=== PATIENT | male | born 1980 | race Caucasian/White ===

== ENCOUNTER 2021-01-27 10:21 | Emergency (ER) | payer OTHER, SELFPAY ==
--- NOTE | ~2021-01-27 | CT_ITS ---
EXAMINATION: CT abdomen pelvis w con EXAM DATE: 01/27/2021 11:13 INDICATION: Pancreatitis. TECHNIQUE: Spiral CT of the abdomen and pelvis was performed following intravenous injection of 100 m L Omnipaque 350. Axial, coronal and sagittal images of the abdomen and pelvis were reviewed. The do se-length product (DLP) for this examination was 1375.55 mGy-cm. The exposure was tailored according to patient size (auto mA exposure control), and iterative reconstruction (ASIR) was used as addition al dose reduction technique. There is no prior study for comparison. FINDINGS: The liver, spleen, adrenal glands and pancreas are unremarkable. Gallbladder is unremarkab le. No biliary obstruction. Portal and splenic veins are patent. Kidneys enhance symmetrically. T here is no hydronephrosis. The prostate is unremarkable. The bladder is unremarkable. Small mesen teric lymph nodes. Small umbilical fat-containing hernia. The appendix is normal. The stomach and small bowel are unremarkable. There is expected amount of c olonic stool. No free intraperitoneal gas. The heart is normal in size. There are no pericardial or pleural effusions. There is severe for age emphysema. There are no osteoblastic or osteolytic l esions identified. IMPRESSION: 1. No acute intra-abdominal findings. 2. Severe emphysema for age. 3. Small umbilical fat-containing hernia. Reviewed, dictated and finalized at location D.
[2021-01-27 10:29] VITALS: BP 151/94; PULSE 89; RESP 14; TEMP 36.3; O2SAT 99
[2021-01-27 10:39] VITALS: BP 164/104; PULSE 97; RESP 18; O2SAT 97
[2021-01-27 10:51] LABS: Basophils Absolute Auto 0.1 K/mm3 (0.0-0.1); Basophils Percent Auto 0.9 % (0.2-1.2); Eosinophils Absolute Auto 0.1 K/mm3 (0-0.3); Eosinophils Percent Auto 1.9 % (0-4.4); Hematocrit 45.2 % (42.0-52.0); Hemoglobin 15.3 g/dL (14.0-18.0); Immature Granulocyte Absolute 0.05 K/mm3 (0.00-0.031); Immature Granulocyte Percent A 0.7 % (0-0.5); Lymphocytes Absolute Auto 1.94 K/mm3 (0.9-3.2); Lymphocytes Percent Auto 28.7 % (18.3-44.2); Mean Corpuscular HGB Conc 33.8 g/dl (32-36); Mean Corpuscular Hemoglobin 29.1 pg (26-34); Mean Corpuscular Volume 85.9 fl (80-100); Mean Platelet Volume 9.4 fl (7.4-10.4); Monocytes Absolute Auto 0.5 K/mm3 (0.1-0.6); Monocytes Percent Auto 7.1 % (2.6-8.5); Neutrophils Absolute Auto 4.1 K/mm3 (1.3-6.7); Neutrophils Percent Auto 60.7 % (45.5-73.1); Platelet Count Result 316 k/mm3 (150-375); Red Blood Count 5.26 M/mm3 (4.6-6.20); Red Cell Distribution Width 12.4 % (11.5-14.5); White Blood Count 6.8 K/mm3 (4.5-10.0)
[2021-01-27 11:01] LABS: Anion Gap 6 mmol/L (8-16); Blood Urea Nitrogen 15 mg/dL (9-20); Calcium 9.1 mg/dL (8.4-10.2); Carbon Dioxide 28 mmol/L (22-30); Chloride 107 mmol/L (98-107); Estimated CRCL calculation 109 ml/min; Estimated Glomerular Filt Rate > 60; Glucose 95 mg/dL (75-110); Sodium 141 mmol/L (137-145)
[2021-01-27 11:04] VITALS: BP 127/95; PULSE 85; RESP 19; O2SAT 97
[2021-01-27] MEDS: SODIUM CHLORIDE 0.9% IV 1,000 ML 999 ML IV CONT (11:04)
[2021-01-27 11:07] LABS: Add Urine Microscopic? NO; Appearance Urine Clear (Clear); Bilirubin Urine Negative (Negative); Blood Urine Negative (Negative); Color Urine Yellow (Yellow); Glucose Urine UA Negative (Negative); Ketones Urine Negative (Negative); Leukocyte Esterase Ur Negative LEU/UL (Negative); Nitrate Urine Negative (Negative); Protein Urine Negative (Negative); Specific Grav Ur 1.016 (1.001-1.035); Urobilinogen Urine Negative mg/dL (<2.0)
[2021-01-27 11:37] LABS: Alanine Aminotransferase 39 U/L (4-50); Albumin Level 4.4 g/dL (3.5-5.1); Alkaline Phosphatase 57 U/L (38-126); Aspartate Amino Transferase 35 U/L (17-59); Bilirubin,Total 1.1 mg/dL (0.2-1.3); Lipase 31 U/L (23-300)
--- NOTE | 2021-01-27 12:16 | ED.ABDPAIN ---
HPI - Abdominal Pain General Chief Complaint: Abdominal Pain Stated Complaint: abd pain Time Seen by Provider: 01/27/21 10:37 Source: patient and RN notes reviewed Mode of arrival: ambulatory Limitations: no limitations History of Present Illness HPI narrative: Patient a 40-year-old male who presents to emergency department for evaluation of left mid back pain that radiates into the flank patient has had this pain for a week and a half has seen chiropractor for this and taken [id number] medications with minimal improvement patient notes he feels swollen in the left upper abdomen and is tender pushes in this area. Denies injury trauma or similar occurrence in the past or recent illness or URI symptoms Related Data Allergies Allergy/AdvReac Type Severity Reaction Status Date / Time No Known Allergies Allergy Unknown Verified 07/22/19 09:54 Review of Systems Review of Systems: All systems reviewed & are unremarkable except as noted in HPI and below PMFSH Past Medical History Medical History Acute sinusitis Asthma BMI 35.0-35.9,adult BMI 36.0-36.9,adult COPD (chronic obstructive pulmonary disease) Cough Depression Encounter for wellness examination in adult Generalized anxiety disorder with panic attacks Mild intermittent asthma in adult without complication Mixed hyperlipidemia Seasonal allergic rhinitis Systemic adverse effect of COVID-19 vaccine (12/14/20) high fever 103? with headache after 2nd COVID vaccination 12/14/2020 Family History Family History Father Diabetes mellitus Hypertension Patient's father is in good health Mother Diabetes mellitus, Onset Age: 65 Hypertension, Onset Age: 65 Family history of malignant neoplasm Grandparent Carcinoma of colon Family history of lung cancer, Onset Age: 61 Social History Social History Smoking status: Never smoker Alcohol intake: never Substance use: never Substance use type: does not use Exam Narrative: Exam Narrative: GENERAL: Well-appearing, well-nourished, and in no acute distress. HEAD: Normocephalic, atraumatic. EYES: PERRLA and EOMI. ENT: Nares clear, no rhinorrhea or epistaxis. Mucous membranes moist. CHEST: Clear to auscultation. No respiratory distress. No wheezes rales or rhonchi HEART: Regular rate and rhythm. No murmur heard. . ABDOMEN: Soft, tenderness in the left upper abdomen no deformities noted, nondistended, normal active bowel sounds. EXTREMITIES: Normal range of motion. No edema. SKIN: Warm, dry, no rash. NEURO: No focal deficits. Alert and oriented x3. PSYCH: Normal mood and affect. Course Course Emergency Course: Patient in the room no distress aware of case findings treatment plan and diagnosis agreeing to follow-up as instructed with primary care for further evaluation ABCs and vital signs intact and stable patient does not appear distressed or uncomfortable agrees with this plan Vital Signs Vital signs: Vital Signs Temperature 97.3 F L 01/27/21 10:29 Pulse Rate 89 01/27/21 10:29 Respiratory Rate 14 01/27/21 10:29 Blood Pressure 151/94 H 01/27/21 10:29 Pulse Oximetry 99 01/27/21 10:29 Temperature 97.3 F L 01/27/21 10:29 Pulse Rate 85 01/27/21 11:04 Respiratory Rate 19 01/27/21 11:04 Blood Pressure 127/95 H 01/27/21 11:04 Pulse Oximetry 97 01/27/21 11:04 MDM - Abdominal Pain MDM Narrative Medical decision making narrative: Patient with left upper abdominal pain no high risk changes in the evaluation or imaging will be discharged home with outpatient follow-up with primary care agrees with this plan is also been provided with reasons to return and feels comfortable with this treatment plan Differential Diagnosis Differential diagnosis: Likely abdominal pain, acute appendicitis, calculus of kid
== END 2021-01-27 12:43 | disposition home or self-care (01) ==
PROVIDERS: Emergency Medicine Emergency Medical Services; Emergency Provider Family Medicine; PCP Family Medicine
DX: R10.9 Unspecified abdominal pain (principal); J45.909 Unspecified asthma, uncomplicated; F32.9 Major depressive disorder, single episode, unspecified; F41.9 Anxiety disorder, unspecified
CPT/HCPCS: 36415; 74177; 80048; 80076; 81003; 83690; 85025; 96361; 96374; 99284; J0131; J7030; Q9967

== ENCOUNTER 2021-06-09 07:42 | Outpatient (CLI) | payer OTHER, SELFPAY ==
--- NOTE | 2021-06-18 18:24 | WPDHOMESLEEP ---
Sleep Study - Home Unattended Date of Study: 06/09/21 <Rosanna Marie DO - Last Filed: 06/18/21 18:36> Ordering Provider: Paulina Espinoza NP <Rosanna Marie DO - Last Filed: 06/18/21 18:36> Interpreting Provider: Rosanna Marie DO <Rosanna Marie DO - Last Filed: 06/18/21 18:36> Home Sleep Study Type: Apnea Link Air <Rosanna Marie DO - Last Filed: 06/18/21 18:36> Height: 1.75 m <Rosanna Marie DO - Last Filed: 06/18/21 18:36> Weight: 117.934 kg <Rosanna Marie DO - Last Filed: 06/18/21 18:36> Body Mass Index: 38.4 <Rosanna Marie DO - Last Filed: 06/18/21 18:36> Neck Circumference (inches): 18 <Rosanna Marie DO - Last Filed: 06/18/21 18:36> [place]: 1 <Rosanna Marie DO - Last Filed: 06/18/21 18:36> Reason for Sleep Study Loud snoring and witnessed apneas <Rosanna Marie DO - Last Filed: 06/18/21 18:36> Sleep History The patient is a 41-year-old male with asthma and COPD that had a home sleep test ordered by his primary care for witnessed apneas. The patient states that his has noticed that he stops breathing in his sleep and she has to physically wake him to get him to breathe. The patient states that this happens almost every night for the past 1-2 years. The patient states that he frequently awakens from sleep short of breath. He occasionally awakens at night with heartburn, belching or cough. Constantly snores loud enough that others complain. He constantly has trouble sleeping when he has a cold. He frequently wakes up gasping for air throughout the night. He constantly has breathing problems at night observed by others. He rarely has heart palpitations throughout the night. He rarely falls asleep during the day but never while driving. He frequently feels unable to move when waking up or falling asleep. He rarely experiences vivid dreamlike scenes upon awakening or falling asleep. He denies cataplexy. He denies trouble at work due to sleepiness. He rarely has nightmares. He frequently has thoughts racing through his mind. He denies feeling sad or depressed but is occasionally anxious. He rarely kicks throughout the night. He rarely experiences crawling and aching feelings in his legs but denies leg pain during the night. He denies grinding his teeth during the sleep but rarely awakens with jaw pain. He denies being bothered by pain during the day and being awakened by pain during the night. He occasionally wakes up feeling stiff in the morning with sore and achy muscles. He goes to bed at 10:00 p.m. on weekdays and at midnight on the weekends. It takes him 30 minutes to 1 hour to fall asleep. He will wake up twice throughout the night for unknown reasons. He will try to go back to sleep and it usually takes a few minutes. He will wake up at 7:00 a.m. on the weekdays and 9:00 a.m. on the weekends. He typically gets 8 hours of sleep per night. He currently lives with his and 2 kids. He does not drink any caffeinated beverages within 2 hours of going to bed. He is not engaged in physical exercise before bedtime. He will watch television before falling asleep. He does not take any naps in the afternoon or the evening. He denies tobacco, caffeine, alcohol and recreational drug use. <Rosanna Marie DO - Last Filed: 06/18/21 18:36> [facility] Past Medical History Medical History: Medical History Acute left-sided thoracic back pain (~01/18/21) Acute sinusitis Asthma BMI 35.0-35.9,adult BMI 36.0-36.9,adult BMI 37.0-37.9, adult COPD (chronic obstructive pulmonary disease) Cough Depression Encounter for wellness examination in adult Generalized anxiety disorder with panic attacks Mild intermittent asthma in adult without complication Mixed hyperlipidemia Seasonal allergic rhinitis Systemic adverse effect of COV
[2021-06-18 18:36] VITALS: BMI 38.4
== END 2021-06-10 10:06 | disposition home or self-care (01) ==
LOC: ANHCSM 07:43
PROVIDERS: PCP Family Medicine; Visit Provider Nurse Practitioner Family
DX: G47.33 Obstructive sleep apnea (adult) (pediatric) (principal)
CPT/HCPCS: 95806

== ENCOUNTER → 2021-06-30 12:01 | Outpatient (CLI) | payer OTHER, SELFPAY ==
--- NOTE | ~2021-06-30 | MR_ITS ---
EXAMINATION: MR shoulder RT w con DATE: 06/30/2021 14:03 INDICATION: Right shoulder pain with labral and rotator cuff injury. TECHNIQUE: Magnetic resonance imaging (MRI) of the right shoulder was performed following intra-guy cular gadolinium contrast injection and without intravenous contrast. Details of the glenohumeral blayne nt injection have been dictated separately. Sequences included axial T2-weighted FS FSE, axial T1-we ighted FS FSE, coronal oblique T1-weighted FS FSE, coronal oblique T2-weighted FSE, sagittal T2-weigh aries FS FSE, sagittal T1-weighted FSE, and ABER (abduction external rotation) T1-weighted FS FSE. COMPARISON: None. FINDINGS: Coracoacromial arch: The acromion undersurface is curved in morphology (type II). The coracoacromial ligament is normal. A nimal acromioclavicular osteoarthritis. Rotator cuff: There is suggestion of a couple suture anchor tracks at the middle facet of the greater tuberosity. C orrelate for surgical history of prior rotator cuff tear of the infraspinatus tendon. There is a smal l contrast filled intrasubstance ganglion cyst extending approximately 2.2 cm lateral to medial along the fibers of the anterior margin of the supraspinatus which appears to arise from a tiny split tear extending to the articular surface at the distal conjoined portion of the tendon. Additional very th in linear tract of contrast extending along a longitudinal split tear along the deep margin of the mo re posterior infraspinatus tendon extending towards the region of the previously noted suspected infr aspinatus tendon repair. No measurable tear defect. The subscapularis and teres minor tendons are nor mal. Normal rotator cuff muscle bulk and signal. Biceps tendon, glenoid labrum and glenohumeral cartilage: Long head of the biceps tendon is intact. Additional likely suture anchor tracks along the superior g lenoid labrum likely reflecting changes of a prior labral repair. Trace amount of contrast extends ac ross the chondral labral junction at this location with some imbibition into the likely anchor tracks . There is however no evident separation either anterior or posterior to the anchor tracks which are by 6 mm or extension laterally into the substance of the labrum to suggest residual/recurre nt tear. There is however a tear involving the 3:00-9:00 position of the anteroinferior labrum which appears relatively smooth and well-defined inferiorly but with similar irregular degenerative appeara nce at the 4:00-5:00 position. There is some chondral fissuring extending 3-4 mm posteriorly from the anterior to anteroinferior rim of the glenoid. Remaining glenohumeral cartilage appears normal. Bones and other: Normal marrow signal with no edema, fracture or pathologic marrow replacing process. No abnormal incr eased fluid signal or contrast in the subacromial/subdeltoid bursa to suggest either bursitis or full -thickness rotator cuff tear. IMPRESSION: 1. Postoperative changes of prior SLAP tear repair and infraspinatus tendon tear repair both of which appear to remain intact. Correlate with surgical history. 2. Tear of the anterior to inferior glenoid labrum with adjacent moderate grade chondromalacia along the rim of the glenoid. 3. A couple tiny perforations along the articular side of the infraspinatus and conjoined portion of the supraspinatus and infraspinatus tendons, the latter with small associated intrasubstance ganglion cyst within the anterior infraspinatus. Reviewed, dictated and finalized at location A. IMPRESSION: 1. Postoperative changes of prior SLAP tear repair and infraspinatus tendon tea r repair both of which appear to remain intact. Correlate with surgical history . 2. Tear of the anterior to inferior glenoid labr
--- NOTE | ~2021-06-30 | XR_ITS ---
EXAMINATION: XR fl inj shoulder RT - MR/CT DATE: 06/30/2021 13:27 INDICATION: Right shoulder pain TECHNIQUE: A time-out was performed to verify the patient's name, date of , and procedure to b e performed. The procedure including the risks and benefits was discussed with the patient. Risks dis cussed included bleeding and infection. The patient understood the risks and agreed to proceed. The s kin overlying the right shoulder joint was prepared and draped in usual sterile fashion. The skin and subcutaneous tissues were infiltrated with 1% lidocaine for local anesthesia. A 22 G needle was adv anced under fluoroscopic guidance into the joint. Injectate consisting of 12 mL of 1:200 0.1 mmol/kg Multihance, 1:4 1% lidocaine, and 1:4 Omnipaque 240 was instilled. The needle was removed and the ent ry site was cleaned and dressed. There were no immediate complications. Fluoroscopy exposure time was 0.5 minutes. The DAP for this procedure was 1.979 Gycm2. FINDINGS: Real-time fluoroscopy demonstrates the needle and contrast in the right glenohumeral joint. IMPRESSION: 1. Successful right glenohumeral joint injection of contrast for subsequent MR arthrography. Reviewed, dictated and finalized at location B.
== END ==
DX: M25.511 Pain in right shoulder (principal); S43.491A Other sprain of right shoulder joint, initial encounter; S43.421A Sprain of right rotator cuff capsule, initial encounter
CPT/HCPCS: 23350; 73222; 77002; A9577; Q9966

== ENCOUNTER 2021-08-25 07:41 | Outpatient (RCR) | payer OTHER, SELFPAY ==
[2021-08-25 09:52] VITALS: BP 156/95; PULSE 120; TEMP 36.4; O2SAT 97
[2021-08-25] MEDS: diphenhydrAMINE HCl CAP 25 MG CAPSULE PO (09:59)
[2021-08-25] MEDS: ACETAMINOPHEN 325 MG TABLET 650 MG PO (09:59)
[2021-08-25] MEDS: FAMOTIDINE 20 MG TABLET PO (10:00)
[2021-08-25 10:02] VITALS: BP 146/96; PULSE 109
[2021-08-25 11:23] VITALS: BP 142/81; PULSE 88; O2SAT 94
--- NOTE | 2021-08-26 10:42 | PC.NURSE ---
Patient states he is feeling better after monoclonal antibody infusion.
== END 2021-08-25 17:00 ==
LOC: AMCINF 07:41
PROVIDERS: PCP Family Medicine; Visit Provider Internal Medicine Hematology & Oncology
DX: U07.1 COVID-19 (principal); J44.9 Chronic obstructive pulmonary disease, unspecified
CPT/HCPCS: A9270; M0245; Q0245

== ENCOUNTER → 2021-09-25 11:06 | Outpatient (CLI) | payer OTHER, SELFPAY ==
--- NOTE | ~2021-09-25 | XR_ITS ---
XR chest 2V 09/25/2021 11:41 Indication: Shortness of breath Procedure: . 2 view chest Comparison: No prior studies for comparison. Findings: There are linear infiltrates of the mid and lower lungs bilaterally. Heart size normal. The lungs are hyperinflated which is consistent with, but not diagnostic of chronic obstructive pulmonar y disease. Impression: 1: Linear bilateral infiltrates of the mid and lower lungs which may represent atelectasis/scarring o r less likely developing pneumonia. Reviewed, dictated and finalized at location B. 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
== END ==
PROVIDERS: PCP Family Medicine; Visit Provider Nurse Practitioner Family
DX: J44.9 Chronic obstructive pulmonary disease, unspecified (principal); R06.02 Shortness of breath; J45.909 Unspecified asthma, uncomplicated; R91.8 Other nonspecific abnormal finding of lung field
CPT/HCPCS: 71046

== ENCOUNTER → 2022-11-15 12:50 | Outpatient (CLI) | payer OTHER, SELFPAY ==
--- NOTE | ~2022-11-15 | US_ITS ---
EXAMINATION: US venous doppler LE RT DATE: 11/15/2022 13:22 INDICATION: Right lower limb pain TECHNIQUE: Grayscale ultrasound images without and with compression and Doppler ultrasound images of the right lower extremity veins were obtained. COMPARISON: None. FINDINGS: The visualized portions of right common femoral vein, profunda (deep) femoral vein, femoral vein, pop liteal vein, peroneal trunk, posterior tibial veins, peroneal veins, gastrocnemius vein, soleal vein and greater saphenous vein outflow are patent. IMPRESSION: 1. No deep venous thrombosis in the right lower limb. Reviewed, dictated and finalized at location A.
== END ==
PROVIDERS: PCP Family Medicine; Visit Provider Nurse Practitioner Family
DX: M79.661 Pain in right lower leg (principal)
CPT/HCPCS: 93971

== ENCOUNTER → 2023-02-24 08:31 | Outpatient (CLI) | payer OTHER, SELFPAY ==
--- NOTE | ~2023-02-24 | XR_ITS ---
Clinical Indication: Cough PA and lateral views of the chest: Comparison: 09/25/2021 Findings: The lungs are clear, without evidence of focal consolidation or pleural effusion. Suspected COPD. Cardiomediastinal silhouette is within normal limits. Bones and soft tissues are unremarkable. Impression: Suspected COPD. Clear lungs. Reviewed, dictated and finalized at location . Impression: Suspected COPD. Clear lungs.
== END ==
PROVIDERS: PCP Family Medicine; Visit Provider Nurse Practitioner Family
DX: R06.02 Shortness of breath (principal); J45.909 Unspecified asthma, uncomplicated; R05.9 Cough, unspecified
CPT/HCPCS: 71046

== ENCOUNTER 2023-10-24 12:18 | Emergency (ER) | payer OTHER, SELFPAY ==
[2023-10-24 12:18] VITALS: BP 151/106; PULSE 120; RESP 18; TEMP 37.3; O2SAT 96
--- NOTE | 2023-10-24 12:32 | PC.NURSE ---
pt did not want to wait, going to another hospital
== END 2023-10-24 12:59 | disposition left against medical advice (07) ==
LOC: ANHED 12:55
PROVIDERS: PCP Family Medicine
DX: R07.9 Chest pain, unspecified (principal)
CPT/HCPCS: 99199

== ENCOUNTER → 2025-01-02 15:37 | Outpatient (CLI) | payer OTHER, SELFPAY ==
--- NOTE | ~2025-01-02 | XR_ITS ---
HISTORY: M54.50-Low back pain, unspecified COMPARISON: None. TECHNIQUE: 4 view lumbar spine. FINDINGS: Lumbar vertebral bodies are normally aligned. There are 5 non-rib bearing lumbar vertebral bodies. Disc spaces and vertebral body heights are well maintained. There are no lytic or sclerotic lesions. Paraspinal soft tissues are normal. Oblique views demonstrate no compression fracture and moderate facet arthropathy. IMPRESSION: Degenerative disease, without acute fracture. Reviewed, dictated and finalized at location A.
--- OUTSIDE RECORDS SUMMARY | 2025-01-02 15:41 | XMS_ITS | Encounter Summary ---
Author Organization [facility] Address 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 Gender Identity Not on file Sexual Orientation Not on file documented as of this encounter Plan of Treatment Not on file documented as of this encounter Procedures Procedure Name Priority Date/Time Associated Diagnosis Comments MAMMO DIAGNOSTIC BILATERAL W OR WO CAD Timed Study 09/16/2008 8:58 AM CHEMICAL OPERATIONS AND TRAINING documented in this encounter Results * MAMMO DIGITAL DIAG BILAT (09/16/2008 8:58 AM CHEMICAL OPERATIONS AND TRAINING) Anatomical Region Laterality Modality Breast Bilateral Other 09/16/2008 8:58 AM CHEMICAL OPERATIONS AND TRAINING Narrative 09/16/2008 10:39 AM CHEMICAL OPERATIONS AND TRAINING [facility] [address] [place], [place] [address] Admit Date: 09/16/2008 DAYRON RADER Sex: M Admit Prov: ELY PONCE Date: 1980 Primary Care Prov: PCP , NONE CMRN: [id number] Room: [facility]: [id number] IMAGING SERVICES Ordering Prov: ELY PONCE Accession Number: [id number] Interpretation BILATERAL DIAGNOSTIC DIGITAL MAMMOGRAMS WITH COMPUTER ASSISTED DIAGNOSIS 09/16/2008 Clinical History: This is a 28 year old male patient who presents with enlarged, painful breasts. Findings: There are collections of abnormal, heterogeneously dense tissue in the subareolar space. The pattern is asymmetrical being more pronounced on the right. There is no discrete mass, distortion, calcification or adenopathy. The images were reviewed using the CAD system. The pattern is most suggestive of bilateral gynecomastia. Malignancy is unlikely. Impression: Bilateral gynecomastia, right greater than left. Recommendations: A surgical opinion should be obtained for this patient. Overall assessment: BIRADS category 2 - Benign findings - any decision to biopsy should be based on clinical assessment. Assessment BIRADS: 2-Benign finding Recommendation: Any decision to biopsy should be based on clinical assessment Dictated by: АЛЕКСАНДР NUÑEZ Electronically signed by: АЛЕКСАНДР NUÑEZ 09/16/2008 10:39 Transcribed: 09/16/2008 10:20 AMK Procedure Note Александр Nuñez MD - 09/16/2008 [address] [place], [place] [address] Admit Date: 09/16/2008 DAYRON RADER Sex: M Admit Prov: ELY PONCE Date: 1980 Primary Care Prov: PCP , NONE CMRN: [id number] Room: [facility]: [id number] IMAGING SERVICES Ordering Prov: ELY PONCE Interpretation BILATERAL DIAGNOSTIC DIGITAL MAMMOGRAMS WITH COMPUTER ASSISTEDDIAGNOSIS 09/16/2008 Clinical History: This is a 28 year old male patient who presentswith enlarged, painful breasts. Findings: There are collections of abnormal, heterogeneously densetissue in the subareolar space. The pattern is asymmetrical being morepronounced on the right. There is no discrete mass, distortion, calcificationor adenopathy. The images were reviewed using the CAD system. The pattern is most suggestive of bilateral gynecomastia. Malignancyis unlikely. Impression: Bilateral gynecomastia, right greater than left. Recommendations: A surgical opinion should be obtained for thispatient. Overall assessment: BIRADS category 2 - Benign findings - anydecision to biopsy should be based on clinical assessment. Assessment BIRADS: 2-Benign finding Recommendation: Any decision to biopsy should be based on clinical assessment Dictated by: АЛЕКСАНДР NUÑEZ Electronically signed by: АЛЕКСАНДР NUÑEZ 09/16/2008 10:39 Transcribed: 09/16/2008 10:20 AMK Ely Pavon MD MAMMO ORDERABLES Rika l Result documented in this encounter Visit Diagnoses Diagnosis Mastodynia documented in this encounter Additional Health Concerns Infection Onset Date Last Indicated Resolved Time R/O COVID-19 05/22/2021 05/22/2021 05/22/2021 11:5 9 AM CDT documented as of this encounter Care Teams Border Guard Relationship Specialty Start Date End Date Gerard Burrell MD [address] [place] [address] PCP - General Family Practice 05/22/21 documented as of this encounter
--- OUTSIDE RECORDS SUMMARY | 2025-01-02 15:41 | XMS_ITS | Encounter Summary ---
Author Organization [employer] [facility] Address [address] [place] [address] Care Team Providers Care Jig Boring Machine Operator For Metal Name Role Phone Gerard Burrell MD Primary Care Provider [phone] Encounter Details Date Type Department Care Team (Latest Contact Info) Description 01/23/2002 Outpatient Historical HIS CARDIOPULMONARY Raymond Huang MD [address] [address] [place] [address] NASAL & SINUS DIS NEC (Primary Dx) Social History Tobacco Use Types Packs/Day Years Used Date Smoking Tobacco: Never Assessed Sex and Gender Information Value Date Recorded Sex Assigned at Not on file Legal 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 Gender Identity Not on file Sexual Orientation Not on file documented as of this encounter Plan of Treatment Not on file documented as of this encounter Visit Diagnoses Diagnosis Nasal/sinus dis NEC- Primary Other diseases of nasal cavity and sinuses documented in this encounter Additional Health Concerns Infection Onset Date Last Indicated Resolved Time R/O COVID-19 05/22/2021 05/22/2021 05/22/2021 11:5 9 AM CDT documented as of this encounter Care Teams Jig Boring Machine Operator For Metal Relationship Specialty Start Date End Date Gerard Burrell MD [address] [place] [address] PCP - General Family Practice 05/22/21 documented as of this encounter
--- OUTSIDE RECORDS SUMMARY | 2025-01-02 15:41 | XMS_ITS | Encounter Summary ---
Author Organization [facility] Address [address] [place] [address] Care Team Providers Care Pulverizer Mill Operator Name Role Phone Gerard Burrell MD Primary Care Provider [phone] Encounter Details Date Type Department Care Team (Late st Contact Info) Description 09/13/[address] [facility] Radha Healy MD [address] [facility] [address] [place] [address] Social History Tobacco Use Types Packs/Day Years Used Date Smoking Tobacco: Never Assessed Sex and Gender Information Value Date Recorded Sex Assigned at Not on file Legal Sex Male 3:34 AM CHILD AND FAMILY THERAPIST Gender Identity Not on file Sexual Orientation Not on file documented as of this encounter Plan of Treatment Not on file documented as of this encounter Procedures Procedure Name Priority Date/Time Associated Diagnosis Comments TESTOSTERONE FREE AND TOTAL Routine 09/16/2008 7:01 AM CHILD AND FAMILY THERAPIST THYROGLOBULIN ANTIBODY Routine 9 7:01 AM CHILD AND FAMILY THERAPIST ALPHA FETOPROTEIN TUMOR MARKER Routine 09/16/2008 7:01 AM CHILD AND FAMILY THERAPIST ESTRADIOL Routine 09/16/2008 7:01 AM CHILD AND FAMILY THERAPIST DHEA Routine 09/16/2008 7:01 AM CHILD AND FAMILY THERAPIST HCG QUANTITATIVE, BLOOD Routine 09/16/2008 7:01 AM CHILD AND FAMILY THERAPIST TSH Routine 09/16/2008 7:01 AM CHILD AND FAMILY THERAPIST T4 FREE Routine 09/16/2008 7:01 AM CHILD AND FAMILY THERAPIST LUTEINIZING HORMONE Routine 09/16/2008 7 :01 AM CHILD AND FAMILY THERAPIST FSH Routine 09/16/2008 7:01 AM CHILD AND FAMILY THERAPIST documented in this encounter Results * HCG QUANTITATIVE, BLOOD (09/16/2008 7:01 AM CHILD AND FAMILY THERAPIST) HCG QUANT, BLOOD <5 0 - 5 mIU/mL [facility] Comment: Result of 5 - 25 mIU/mL is indeterminant for , repeat of test recommemded in 48 hours. Reference Range: Gestational Age: 3 Weeks 5.8 - 71.2 mIU/mL 4 Weeks 9.5 - 750 mIU/mL 5 Weeks 217 - 7138 mIU/mL 6 Weeks 158 - 31,795 mIU/mL 7 Weeks 3697 - 163,563 mIU/mL 8 Weeks 32,065 - 149,571 mIU/mL 9 Weeks 63,803 - 151,410 mIU/mL 10 Weeks 46,509 - 186,977 mIU/mL 12 Weeks 27,832 - 210,612 mIU/mL 14 Weeks 13,950 - 62,530 mIU/mL 15 Weeks 12,039 - 70,971 mIU/mL 16 Weeks 9040 - 56,451 mIU/mL 17 Weeks 8175 - 55,868 mIU/mL 18 Weeks 8099 - 58,176 mIU/mL Heterophile antibodies and other interfering substances in the serum of some patients may cause a false-positive result in this assay. Before making a diagnosis of malignancy or ectopic ,the result of this test should be confirmed with a urine HCG test and correlated with other clinical evidence. Blood specimen (specimen) 09/16/2008 7:01 AM CHILD AND FAMILY THERAPIST 09/16/2008 7:43 AM CHILD AND FAMILY THERAPIST Radha Pavon MD CHEMISTRY ORDERABLES Edited Performing Organization Address [facility] Phone Number INTERFACE SYSTEM Refer to clinic/hospital department [facility] CLIA# [id number] [address] [place] [address] * ALPHA FETOPROTEIN TUMOR MARKER (09/16/2008 7:01 AM CHILD AND FAMILY THERAPIST) Pathologist [facility] ALPHA FETOPROTEIN TUMOR MARKER 3.7 <6.1 ng/mL [facility] Comment: THIS TEST WAS PERFORMED USING THE SIEMENS (DPC) CHEMILUMINESCENT METHOD. VALUES OBTAINED FROM DIFFERENT ASSAY METHODS CANNOT BE USED INTERCHANGEABLY. AFP LEVELS, REGARDLESS OF VALUE, SHOULD NOT BE INTERPRETED ABSOLUTE EVIDENCE OF THE PRESENCE OR ABSENCE OF DISEASE. Lab test performed by: [facility] [address] [place] [address] MACKENZIE CIFUENTES MD This test was performed using the DPC Immulite 2000 Assay. Blood specimen (specimen) 09/16/2008 7:01 AM CHILD AND FAMILY THERAPIST 09/16/2008 7:43 AM CHILD AND FAMILY THERAPIST Radha Pavon MD CHEMISTRY ORDERABLES Final Result Performing Organization Address [facility] Phone Number INTERFACE SYSTEM Refer to clinic/hospital department [facility] CLIA# [id number] [address] [place] [address] * TSH (09/16/2008 7:01 AM CHILD AND FAMILY THERAPIST) [facility] TSH 1.41 0.27 - 4.20 uU/mL [facility] Blood specimen (specimen) 09/16/2008 7:01 AM CHILD AND FAMILY THERAPIST 09/16/2008 7:43 AM CHILD AND FAMILY THERAPIST Radha Pavon MD CHEMISTRY ORDERABLES Edited Performing Organization Address [facility] Phone Number INTERFACE SYSTEM Refer to clinic/hospital department [facility] CLIA# [id number] [address] [place] [address] * THYROGLOBULIN ANTIBODY (09/16/2008 7:01 AM CHILD AND FAMILY THERAPIST) [facility] THYROGLOBULIN AB <20 <20 IU/mL [facility] Comment: Lab test performed by: [facility] [address] [facility] [place] [address] MACKENZIE CIFUENTES MD Blood specimen (specimen) 09/16/2008 7:01 AM CHILD AND FAMILY THERAPIST 09/16/2008 7:43 AM CHILD AND FAMILY THERAPIST Radha Pavon MD CHEMISTRY ORDERABLES Final Result Performing Organization Address [facility] de Phone Number INTERFACE SYSTEM Refer to clinic/hospital department [facility] CLIA# [id number] [address] [place] [address] * TESTOSTERONE FREE AND TOTAL (09/16/2008 7:01 AM CHILD AND FAMILY THERAPIST) [facility] TESTOSTERONE 593 250 - 1100 ng/dL [facility] % FREE TESTOSTERONE 1.57 1.50 - 2.20 % [facility] TESTOSTERONE FREE 93.1 35.0 - 155.0 pg/mL [facility] Comment: Lab test performed by: [facility] [address] [address] BEREKET MONTE MD Blood specimen (specimen) 09/16/2008 7:01 AM CHILD AND FAMILY THERAPIST 09/16/2008 7:43 AM CHILD AND FAMILY THERAPIST us Radha Pavon MD CHEMISTRY ORDERABLES Final Result Performing Organization Address [facility] de Phone Number INTERFACE SYSTEM Refer to clinic/hospital department [facility] CLIA# [id number] [address] [place] [address] * T4 FREE (09/16/2008 7:01 AM CHILD AND FAMILY THERAPIST) T4 FREE 1.5 0.9 - 1.7 ng/dL [facility] Blood specimen (specimen) 09/16/2008 7:01 AM CHILD AND FAMILY THERAPIST 09/16/2008 7:43 AM CHILD AND FAMILY THERAPIST Radha Pavon MD CHEMISTRY ORDERABLES Edited Performing Organization Address [facility] Phone Number INTERFACE SYSTEM Refer to clinic/hospital department [facility] CLIA# [id number] [address] [place] [address] * LUTEINIZING HORMONE (09/16/2008 7:01 AM CHILD AND FAMILY THERAPIST) LUTEINIZING HORMONE 6.3 1.7 - 8.6 mIU/mL [facility] Comment: Luteinizing Hormone Reference Range: Female: Normal Menstruating Female Follicular Phase 2.4 - 12.6 mIU/mL Ovulation Phase 14.0 - 95.6 mIU/mL Luteal Phase 1.0 - 11.4 mIU/mL Post Menopausal 7.7 - 58.5 mIU/mL Children less than 1 year old: Call laboratory for reference range. Blood specimen (specimen) 09/16/2008 7:01 AM CHILD AND FAMILY THERAPIST 09/16/2008 7:43 AM CHILD AND FAMILY THERAPIST Radha Pavon MD CHEMISTRY ORDERABLES Edited Performing Organization Address [facility] de Phone Number INTERFACE SYSTEM Refer to clinic/hospital department [facility] CLIA# [id number] [address] [place] [address] * FSH (09/16/2008 7:01 AM CHILD AND FAMILY THERAPIST) FSH 6.3 1.5 - 12.4 mIU/mL [facility] Comment: FSH Reference Range: Female: Normally Menstruating Female Follicular Phase 3.5 - 12.5 mIU/mL Ovulation Phase 4.7 - 21.5 mIU/mL Luteal Phase 1.7 - 7.7 mIU/mL Post Menopausal 25.8 - 134.8 mIU/mL Children less than 1 year old: Call laboratory for reference range. Blood specimen (specimen) 09/16/2008 7:01 AM CHILD AND FAMILY THERAPIST 09/16/2008 7:43 AM CHILD AND FAMILY THERAPIST Radha Pavon MD CHEMISTRY ORDERABLES Edited Performing Organization Address [facility] Phone Number INTERFACE SYSTEM Refer to clinic/hospital department [facility] CLIA# [id number] [address] [place] [address] * ESTRADIOL (09/16/2008 7:01 AM CHILD AND FAMILY THERAPIST) ESTRADIOL 19 8 - 43 pg/mL [facility] Comment: Estradiol Reference Range: Female: Normally Menstruating Female Follicular Phase: 13 - 166 pg/ml Ovulation Phase: 86 - 498 pg/mL Luteal Phase: 44 - 211 pg/mL Post Menopausal: <5 - 55 pg/mL 1st Trimester: 215 - >4300 pg/mL Children less than 1 year old: No Reference Range established. Blood specimen (specimen) 09/16/2008 7:01 AM CHILD AND FAMILY THERAPIST 09/16/2008 7:43 AM CHILD AND FAMILY THERAPIST Radha Pavon MD CHEMISTRY ORDERABLES Edited Performing Organization Address [facility] Phone Number INTERFACE SYSTEM Refer to clinic/hospital department [facility] CLIA# [id number] [address] [place] [address] * DHEA (09/16/2008 7:01 AM CHILD AND FAMILY THERAPIST) DHEA 963 ng/dL [facility] Comment: Reference Range: [phone] Lab test performed by: [facility] [address] [place] [address] Julianne COMBS MD Blood specimen (specimen) 09/16/2008 7:01 AM CHILD AND FAMILY THERAPIST 09/16/2008 7:43 AM CHILD AND FAMILY THERAPIST Radha Pavon MD CHEMISTRY ORDERABLES Final Result INTERFACE SYSTEM Refer to clinic/hospital department [facility] CLIA# [id number] [address] [place] [address] documented in this encounter Visit Diagnoses Not on filedocumented in this encounter Additional Health Concerns Infection Onset Date Last Indicated Resolved Time R/O COVID-19 05/22/2021 05/22/2021 05/22/2021 11:5 9 AM CDT documented as of this encounter Care Teams Pulverizer Mill Operator Relationship Specialty Start Date End Date Gerard Burrell MD [address] [place] [address] PCP - General Family Practice 05/22/21 documented as of this encounter
--- OUTSIDE RECORDS SUMMARY | 2025-01-02 15:41 | XMS_ITS | Encounter Summary ---
Author Organization [facility] Address 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
--- OUTSIDE RECORDS SUMMARY | 2025-01-02 15:41 | XMS_ITS | Clinical Summary ---
Author Organization [facility] Address [address] [place] [address] Phone Care Team Providers Care Edi Programmer Name Role Phone Gerard Burrell MD Primary Care Provider [phone] Allergies No known active allergies Medications albuterol sulfate HFA 90 mcg/actuation aerosol inhaler Take 2 Puffs by inhalation every 6 hours as needed. 9 Active Active Problems Problem Noted Date Diagnosed Date Patellar instability of right knee 05/24/2024 Encounters Date Type Department Care Team Description 11/27/2024 External Device Data ST[facility] ABSTRACTION Provider, Abstract 11/06/2024 External Device Data STL ABSTRACTION Provider, Abstract 11/06/2024 External Device Data ST[facility] ABSTRACTION Provider, Abstract 10/16/2024 External Device Data STL ABSTRACTION Provider, Abstract 10/09/2024 External Device Data STL ABSTRACTION Provider, Abstract from Last 3 Months Social History Tobacco Use Types Packs/Day Years Used Date Smoking Tobacco: Never Smokeless Tobacco: Never Alcohol Use Standard Drinks/Week Comments Never 0 (1 standard drink = 0.6 oz pur e alcohol) Sex and Gender Information Value Date Recorded Sex Assigned at Not on file Legal 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 Male 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 Gender Identity Not on file Sexual Orientation Not on file Last Filed Vital Signs Vital Sign Reading Time Taken Comments Blood Pressure 139/101 04/16/2024 2:11 PM CDT Pulse 98 04/16/2024 2:11 PM CDT Temperature 36.8 C (98.2 F) 05/22/2021 9:41 AM CDT Respiratory Rate 19 05/22/2021 9:41 AM CDT Oxygen Saturation 95% 05/22/2021 10:30 AM CDT Inhaled Oxygen Concentration - - Weight 108.9 kg (240 lb) 04/16/2024 2:11 PM CDT Height 175.3 cm (5' 9 ) 04/16/2024 2:11 PM CDT Body Mass Index 35.44 04/16/2024 2:11 PM CDT Plan of Treatment Health Maintenance Due Date Last Done Comments Pre-Diabetes and Diabetes Screening 1982 DTAP/TDAP/TD VACCINES (1 - Tdap) 2001 HEPATITIS B VACCINES (1 of 3 - 19+ 3-dose series) 2001 INFLUENZA VACCINE (#1) 2024 HPV VACCINES Aged Out No longer eligi ble based on patient's age to complete this topic Insurance [email or web address] Advance Directives For more information, please contact: [phone] Documents on File Type Date Recorded Patient Overnight Stocker Expl anation Advance Directive POA 09/13/2008 Care Teams Edi Programmer Relationship Specialty Start Date End Date Gerard Burrell MD [address] [place] [address] PCP - General Family Practice 05/22/21
--- OUTSIDE RECORDS SUMMARY | 2025-01-02 15:41 | XMS_ITS | Encounter Summary ---
Author Organization [facility] Address [address] [place] [address] Care Team Providers Care Cell Lead Name Role Phone Gerard Burrell MD Primary Care Provider [phone] Encounter Details Date Type Department Care Team (Latest Contact Info) Description 02/02/2002 Outpatient Historical HIS [facility] Raymond Huang MD [address] [facility] [address] [place] [address] UNS ASTHMA WOSTATUS ASTHMATICUS (Primary Dx) Social History Tobacco Use Types Packs/Day Years Used Date Smoking Tobacco: Never Assessed Sex and Gender Information Value Date Recorded Sex Assigned at Not on file Legal 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 Gender Identity Not on file Sexual Orientation Not on file documented as of this encounter Plan of Treatment Not on file documented as of this encounter Visit Diagnoses Diagnosis Unspecified asthma(493.90)- Primary Unspecified asthma documented in this encounter Additional Health Concerns Infection Onset Date Last Indicated Resolved Time R/O COVID-19 05/22/2021 05/22/2021 05/22/2021 11:5 9 AM CDT documented as of this encounter Care Teams Cell Lead Relationship Specialty Start Date End Date Gerard Burrell MD [facility] [place] [address] PCP - General Family Practice 05/22/21 documented as of this encounter
--- OUTSIDE RECORDS SUMMARY | 2025-01-02 15:41 | XMS_ITS | Clinical Summary ---
Author Organization [facility] Address [facility] [place] [address] Care Team Providers Care Video Production Engineer Name Role Phone Gerard Burrell MD Primary Care Provider [phone] Allergies No known active allergies Medications albuterol sulfate HFA 108 (90 Base) MCG/ACT inhaler Inhale 2 puffs into the lungs every 6 (six) hours as needed for Wheezing. 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 Gender Identity Not on file Sexual Orientation Not on file Last Filed Vital Signs Vital Sign Reading Time Taken Comments Blood Pressure 135/86 04/13/2024 2:30 PM CDT Pulse 88 04/13/2024 2:30 PM CDT Temperature 36.2 C (97.2 F) 04/13/2024 2:30 PM CDT Respiratory Rate 16 04/13/2024 2:30 PM CDT Oxygen Saturation 99% 04/13/2024 2:30 PM CDT Inhaled Oxygen Concentration - - Weight 108.9 kg (240 lb) 04/13/2024 12:12 PM CDT Height 175.3 cm (5' 9 ) 04/13/2024 12:12 PM CDT Body Mass Index 35.44 04/13/2024 12:12 PM CDT Plan of Treatment Health Maintenance Due Date Last Done Comments Annual Physical 1985 Hepatitis C 2000 DTaP, Tdap and Td Vaccines ( 2 - Td or Tdap) 02/01/2023 02/01/2013 Hepatitis B Vaccines (2 of 3 - Hep B Twinrix 3-dose series) 03/11/2023 02/11/2023 COVID-19 Vaccine (3 - 2023-2 5 season) 2024 12/14/2020, 11/21/2020 HPV Vaccines Aged Out No longer eligi ble based on patient's age to complete this topic Meningococcal B Vaccine Aged Out No l onger eligible based on patient's age to complete this topic Meningococcal Vaccine Aged Out No angelica joe eligible based on patient's age to complete this topic Pneumococcal Vaccine: Pediatrics (0 to 5 Years) and At-Risk Patients (6 to 49 Years) Aged Out No longer eligible b ased on patient's age to complete this topic RSV Immunizations Under 20 Months Aged Out No longer eligible b ased on patient's age to complete this topic Insurance [facility] Care Teams Video Production Engineer Relationship Specialty Start Date End Date Gerard Burrell MD [address] [place] [address] [address] [place] [address] PCP - General FAMILY PRACTICE 10/24/23
--- OUTSIDE RECORDS SUMMARY | 2025-01-02 15:41 | XMS_ITS | Patient Health Record ---
Author Organization [facility] Address [address] [place], [place] [address] Care Team Providers Care Landscape Crew Member Name Role Phone AbadGerard zuñiga Unavailable Unavailable LAMAR SANCHES Unavailable [phone] Allergies No Known Allergies Reason For Referral No Information Medications Medication SIG (Take, Route, Frequency, Duration) Notes Start Date End Date Status methylPREDNISolone 4 MG as directed Orally one pack 024 Active Encounters Encounter Location Date Provider Diagnosis [facility] [address] [place], [place] [id number] 07/02/2024 LAMAR SANCHES Peroneal tendinitis, left leg M76.72 ; Metatarsalgia, left foot M77.42 ; Flat foot [pes planus] (acquired), right foot M21.41 ; Flat foot [pes planus] (acquired), left foot M21.42 and Left foot pain M79.672 Assessments Encounter Date Diagnosis (ICD Code) Assessment Notes Treatment Notes Treatment Clinical Notes Section Notes 07/02/2024 Peroneal tendinitis, left leg (ICD-10 - M76.72) Peroneal Tendonitis: I discussed anti-inflammatory treatment options and various means of immobilization with the patient. I educated the patient on icing and stretching, supportive shoegear, and the use of orthotic devices and bracing. Orthotic Recommendation: I recommended functional orthotics for the patient. PowerStep Inserts: The patient was dispensed and fitted with over the counter arch supports. The patient was educated on their use and effect. All questions were answered. 07/02/2024 Metatarsalgia, left foot (ICD-10 - M77.42) Metatarsalgia: I discussed anti-inflammatory treatment options and various means of immobilization with the patient. I educated the patient on icing and stretching, supportive shoegear, and the use of orthotic devices and bracing. 07/02/2024 Flat foot [pes planus] (acquired), right foot (ICD-10 - M21.41) PesPlano Valgus: I discussed anti-inflammatory treatment options and various means of immobilization with the patient. I educated the patient on icing and stretching, supportive shoegear, and the use of orthotic devices and bracing. Shoe Recommendation: Advised patient on appropriate shoe gear for protection, healing and good foot health. 07/02/2024 Flat foot [pes planus] (acquired), left foot (ICD-10 - M21.42) 07/02/2024 Left foot pain (ICD-10 - M79.672) Plan Of Treatment No Information Insurance Providers Payer Name Payer Address Payer Phone Subscriber Number Group Number Insured Name Patient Relationship to Insured Coverage Start Date Coverage End Date [facility] [address] [place] [phone] [id number] Dayron Rader Self - patient is the insured
--- OUTSIDE RECORDS SUMMARY | 2025-01-02 15:41 | XMS_ITS | Encounter Summary ---
Author Organization [employer] Address 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 Gender Identity Not on file Sexual Orientation Not on file documented as of this encounter Plan of Treatment Not on file documented as of this encounter Visit Diagnoses Diagnosis Laboratory examination- Primary documented in this encounter Additional Health Concerns Infection Onset Date Last Indicated Resolved Time R/O COVID-19 05/22/2021 05/22/2021 05/22/2021 11:5 9 AM CDT documented as of this encounter Care Teams Family Centered Specialist Relationship Specialty Start Date End Date Gerard Burrell MD [facility] [place] [address] PCP - General Family Practice 05/22/21 documented as of this encounter
--- OUTSIDE RECORDS SUMMARY | 2025-01-02 15:41 | XMS_ITS | Encounter Summary ---
Author Organization [employer] [facility] Address 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
--- OUTSIDE RECORDS SUMMARY | 2025-01-02 15:41 | XMS_ITS | Encounter Summary ---
Author Organization [facility] Address [address] [place] [address] Care Team Providers Care Swing Ride Operator Name Role Phone Gerard Burrell MD Primary Care Provider [phone] Encounter Details Date Type Department Care Team (Late st Contact Info) Description 02/20/2002 Outpatient Historical HIS [facility] Raymond Soto MD [address] [facility] [address] [place] [address] Social History Tobacco Use Types Packs/Day Years Used Date Smoking Tobacco: Never Assessed Sex and Gender Information Value Date Recorded Sex Assigned at Not on file Legal Sex Male 3:34 AM INSTRUCTOR PHYSICAL Gender Identity Not on file Sexual Orientation Not on file documented as of this encounter Plan of Treatment Not on file documented as of this encounter Visit Diagnoses Not on filedocumented in this encounter Additional Health Concerns Infection Onset Date Last Indicated Resolved Time R/O COVID-19 05/22/2021 05/22/2021 05/22/2021 11:5 9 AM CDT documented as of this encounter Care Teams Swing Ride Operator Relationship Specialty Start Date End Date Gerard Burrell MD [address] [place] [address] PCP - General Family Practice 05/22/21 documented as of this encounter
--- OUTSIDE RECORDS SUMMARY | 2025-01-02 15:41 | XMS_ITS | Encounter Summary ---
Author [email or web address] Address [address] [place] [address] Care Team Providers Care Heating And Ventilating Tender Name Role Phone Gerard Burrell MD Primary Care Provider [phone] Encounter Details Date Type Department Care Team (Latest Contact Info) Description 01/23/2002 Outpatient Historical HIS [facility] Raymond Soto MD [address] 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 Gender Identity Not on file Sexual Orientation Not on file documented as of this encounter Plan of Treatment Not on file documented as of this encounter Visit Diagnoses Diagnosis Shortness of breath- Primary documented in this encounter Additional Health Concerns Infection Onset Date Last Indicated Resolved Time R/O COVID-19 05/22/2021 05/22/2021 05/22/2021 11:5 9 AM CDT documented as of this encounter Care Teams Heating And Ventilating Tender Relationship Specialty Start Date End Date Gerard Burrell MD [address] [place] [address] PCP - General Family Practice 05/22/21 documented as of this encounter
--- OUTSIDE RECORDS SUMMARY | 2025-01-02 15:42 | XMS_ITS ---
Author [facility] Address [address] [place], [place] [id number] Care Team Providers Care L D Rn Name Role Phone LudaGerard english Unavailable Unavailable LAMAR SANCHES Unavailable [phone] REASON FOR VISIT sick Medications Medication SIG (Take, Route, Frequency, Duration) Notes Start Date End Date Status methylPREDNISolone 4 MG as directed Orally one pack 024 Active Encounters Encounter Location Date Provider Diagnosis [facility] [place] [address] [place], [place] [id number] 07/23/2024 LAMAR SANCHES Plan Of Treatment No Information Progress Notes * Dayron RADERDOB:1980 (44 yo M)Acc No.[id number]:07/23/2024 Patient: Dayron MARQUEZ Provider: Lety Sanches DPM :1980 A ge:44 Y S ex:Male Date:07/23/2024 Address:[address] [place] [address], [facility] Subjective: * Chief Complaints: * 1 . Sick. * Medical History: * Medications: T aking methylPREDNISolone 4 MG Tablet Therapy Pack as directed Orally , Notes to Pharmacist: one pack Objective: * Vitals: Assessment: Plan: * Treatment: * Billing Information: * Visit Code: * Procedure Codes: * Electronic signature of LAMAR SANCHES DPM on 01/02/2025 at 03:41 PM CDT Sign off status: Pending * Provider: Lety Sanches DPM Date: 09/22/2023 Generated for Theron newton/Walter/Hamiltonitting on: 0 01/02/2025 03:41 PM CDT
--- OUTSIDE RECORDS SUMMARY | 2025-01-02 15:42 | XMS_ITS | Clinical Summary ---
Author Organization [email or web address] Address [address] [place] [address] Care Team Providers Care Sausage Stuffer Name Role Phone Zacarias Hopper MD Primary Care Provider Sincere sanderson Source Comments [email or web address],non-owned Affiliates and Associated Physician Practices is amultiple site organization consisting of ambulatory clinics and hospital sitesin [place], [place], [place] and [place]. This disclosure is being madepursuant to the Care Everywhere program and may not contain all information available regarding this patient. Last updated 18.[email or web address] Allergies No known active allergies Medications * Be aware that medications may not be up to date on this document. Alwaysverify current medications with the patient. albuterol (PROVENTIL; VENTOLIN) 90 MCG/ACT inhaler Inhale 2 Puffs by mouth as needed for Shortness of Breath, Wheezing and Cough. Active hydrocodone-paola taminophen (NORCO) 7.5-325 MG tablet Take 1 Tab by mouth every 4 hours as needed for Pain. 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 Gender Identity Not on file Sexual Orientation Not on file Last Filed Vital Signs Vital Sign Reading Time Taken Comments Blood Pressure 130/70 12/27/2008 3:44 PM CDT Pulse 90 12/27/2008 3:44 PM CDT Temperature 36.7 C (98 F) 12/27/2008 1:25 PM CDT Respiratory Rate 16 12/27/2008 3:44 PM CDT Oxygen Saturation 96% 12/27/2008 3:44 PM CDT Inhaled Oxygen Concentration - - Weight 89.4 kg (197 lb) 12/27/2008 7:44 AM CDT Height 175.3 cm (5' 9 ) 12/27/2008 7:44 AM CDT Body Mass Index 29.09 12/27/2008 7:44 AM CDT Plan of Treatment Health Maintenance Due Date Last Done Comments LIPID TESTING 1980 HIV SCREENING 1997 HEPATITIS C SCREENING 03/02/2000 DTAP/TDAP/TD VACCINES (1 - Tdap) 2001 HEPATITIS B VACCINE (1 of 3 - 19+ 3-dose series) 2001 COVID-19 VACCINE ( - 2023-2 5 season) 2024 DEPRESSION SCREENING 08/29/2024 INFLUENZA VACCINE (Season Ended) 2025 ZOSTER VACCINE (1 of 2) 2032 HIB VACCINE Aged Out No longer eligi ble based on patient's age to complete this topic HPV VACCINE Aged Out No longer eligi ble based on patient's age to complete this topic MENINGOCOCCAL (Group B) VACC INE SHARED DECISION-MAKING Aged Out No longer eligibl e based on patient's age to complete this topic MENINGOCOCCAL GROUPS A/C/Y/W VACCINE Aged Out No longer eligible b ased on patient's age to complete this topic PNEUMOCOCCAL VACCINE Aged Out No long er eligible based on patient's age to complete this topic Care Teams Sausage Stuffer Relationship Specialty Start Date End Date Zacarias Hopper MD PCP - General 05/09/09
--- OUTSIDE RECORDS SUMMARY | 2025-01-02 15:42 | XMS_ITS ---
Author Organization [facility] Address [address] [place], [place] [id number] Care Team Providers Care Paper Rewinder Operator Name Role Phone Ashanti Gerard Unavailable Unavailable LAMAR SANCHES Unavailable [phone] REASON FOR VISIT This past , the patient had intense pain to the outside of his left foot near the base of the 5th metatarsal. He does not recall any accident, injury, change in shoes, or change in activity. He does have a history of flat feet and stress fractures in the left foot., Over the weekend, the pain on the bone has decreased, but has spread up his outside ankle and now the outside of his lower leg feels tight Medications Medication SIG (Take, Route, Frequency, Duration) Notes Start Date End Date Status methylPREDNISolone 4 MG as directed Orally one pack 024 Active Encounters Encounter Location Date Provider Diagnosis [facility] [place] [address] [place], [place] [id number] 07/02/2024 LAMAR SANCHES Peroneal tendinitis, left leg [...] pain (ICD-10 - M79.672) Plan Of Treatment Medication Medication Name Sig Start Date Stop Date Notes methylPREDNISolone 4 MG as directed Orally 07/02/2024 one pack Treatment Notes Assessment Notes Peroneal tendinitis, left leg Peroneal Tendonitis: I discussed anti-inflammatory treatment options [...] use and effect. All questions were answered. Metatarsalgia, left foot Metatarsalgia: I discussed anti-inflammatory treatment options and various means of immobilization with the patient. I educated the patient on icing and stretching, supportive shoegear, and the use of orthotic devices and bracing. Flat foot [pes planus] (acqu ired), right foot PesPlano Valgus: I discussed anti-inflammatory treatment options and various means of immobilization with the patient. I educated the patient on icing and stretching, supportive shoegear, and the use of orthotic devices and bracing. Shoe Recommendation: Advised patient on appropriate shoe gear for protection, healing and good foot health. Next Appt Details Follow Up: 2 Weeks, Reason: See how oral steroid, better shoes, and PowerSteps helped peroneals. Orthotic scanning prn Progress Notes * Dayron RADERDOB:1980 (44 yo M)Acc No.[id number]:07/02/2024 Progress Notes Patient: Dayron MARQUEZ Provider: Lety Sanches DPM :1980 A ge:44 Y S ex:Male Date:07/02/2024 Address:[address] [place] [address], [id number] Subjective: * Chief Complaints: * 1 . This past , the patient had intense pain to the outside of his left foot near the base of the 5th metatarsal. He does not recall any accident, injury, change in shoes, or change in activity. He does have a history of flat feet and stress fractures in the left foot.. 2. Over the weekend, the pain on the bone has decreased, but has spread up his outside ankle and now the outside of his lower leg feels tight. * HPI: H PI: New Complaint P atient presents for a new patient consultation., Patient complains of an issue to Laterl pain to left foot. Pain started 06/28 pt iced it and wrapped it with no relief. Tuesday pain started going into his ankle and up his leg. Pt is flat foot and has loose ankles. , Patient denies any injury., MA: HG . * ROS: G eneral / Constitutional: Patient denies c hills, fever, weakness, night sweats, chills, fever, weakness, night sweats. M usculoskeletal: Patient denies c hildhood foot problems, weakness, childhood foot problems, weakness. P atient complains of f lat feet/ planus, joint pain, ankle pain.? P eripheral Vascular: Patient denies u lceration of feet, cold extremities, ulceration of feet, cold extremities. S kin: Patient denies u lcerations, discoloration, ulcerations, discoloration. N eurologic: Patient denies b alance difficulty, confusion, difficulty speaking, dizziness, balance difficulty, confusion, difficulty speaking, dizziness. * Medical History: * Medications: N one Objective: * Vitals: * Examination: C onstitutional: Constitutional T he patient is awake, alert, well developed, well groomed and well nourished. D ermatologic: Skin findings: S kin is warm, dry, supple with no breaks in the skin. V ascular: Dorsalis pedis pulse: 2 /4, bilateral . Posterior tibial pulse: 2 /4, bilateral. Capillary refill: l ess than 3 seconds . Edema: N o edema, bilateral. N eurologic: Gross sensation G ross sensation is intact to light touch?. M usculoskeletal: Muscle Strength M uscle strength is 5/5 in regards to dorsiflexion, plantarflexion, inversion, and eversion in bilateral lower extremities. Pain on palpation p eroneal tendons of the left foot., There is pain with range of motion (eversion against resistance) left foot. Some tenderness to the base of the left 5th metatarsal base. Foot Structure T he foot structure is noted to be, planus, bilaterally, There is calcaneus valgus noted, bilaterally. R adiographs: Left Foot No evidence of fracture, dislocation, or other osseous lesions. There is an accessory ossicle, an os peroneum noted. ? Assessment: * Assessment: 1. P eroneal tendinitis, left leg - M76.72 (Primary) 2 . M etatarsalgia, left foot - M77.42 3 . F lat foot [pes planus] (acquired), right foot - M21.41? 4. F lat foot [pes planus] (acquired), left foot - M21.42 5 . L eft foot pain - M79.672 Plan: * Treatment: 2. M etatarsalgia, left foot Notes: Metatarsalgia: I discussed anti-inflammatory treatment options and various means of immobilization with the patient. I educated the patient on icing and stretching, supportive shoegear, and the use of orthotic devices and bracing. 3. F lat foot [pes planus] (acquired), right foot Notes: PesPlano Valgus: I discussed anti-inflammatory treatment options and various means of immobilization with the patient. I educated the patient on icing and stretching, supportive shoegear, and the use of orthotic devices and bracing. Shoe Recommendation: Advised patient on appropriate shoe gear for protection, healing and good foot health. * Procedure Codes: 7 3630 X-RAY EXAM OF FOOT, Modifiers: LT * Follow Up: 2 Weeks (Reason: See how oral steroid, better shoes, and PowerSteps helped peroneals. Orthotic scanning prn) * Billing Information: * Visit Code: 43719 Office Visit, New Pt., Level 3. * Procedure Codes: 84214 X-RAY EXAM OF FOOT. Modifiers: LT * Electronic signature of LAMAR SANCHES DPM on 01/02/2025 at 03:41 PM CDT Sign off status: Pending * Provider: Lety Sanches DPM Date: 1 09/01/2023 Generated for Theron newton/Walter/Pepper on: 0 01/02/2025 03:41 PM CDT History and Physical Notes * HPI (History of Present Illness) Category Sub-Category Detail Notes Category Not es HPI New Complaint Patient presents for a new patient consultation., Patient complains of an issue to Laterl pain to left foot. Pain started 06/28 pt iced it and wrapped it with no relief. Tuesday pain started going into his ankle and up his leg. Pt is flat foot and has loose ankles. , Patient denies any injury., MA: HG Examination Category Sub-Category Detail Notes Category Not es Dermatologic Skin findings: Skin is warm, dr y, supple with no breaks in the skin Neurologic Gross sensation Gross sensation is intact to light touch Vascular Dorsalis pedis pulse: 2/4, bilateral Edema: No edema, bilateral Capillary refill: less than 3 seconds Posterior tibial pulse: 2/4, bilateral Musculoskeletal Muscle Strength Muscle strength is 5/5 in regards to dorsiflexion, plantarflexion, inversion, and eversion in bilateral lower extremities Pain on palpation peroneal tendons of the left foot., There is pain with range of motion (eversion against resistance) left foot. Some tenderness to the base of the left 5th metatarsal base Foot Structure The foot structure i s noted to be, planus, bilaterally, There is calcaneus valgus noted, bilaterally Constitutional Constitutional The patient is a wake, alert, well developed, well groomed and well nourished Radiographs Left Foot No evidence of f racture, dislocation, or other osseous lesions. There is an accessory ossicle, an os peroneum noted
== END ==
LOC: EXPTROY 15:39
PROVIDERS: PCP Family Medicine; Visit Provider Family Medicine
DX: M51.369 Other intervertebral disc degeneration, lumbar region without mention of lumbar back pain or lower extremity pain (principal)
CPT/HCPCS: 72110